=== PATIENT | female | born 1990 | race Caucasian/White ===

== ENCOUNTER 2017-06-07 18:00 | Emergency (ER) | payer OTHER ==
[~2017-06-07] VITALS: Ht 160 cm; Wt 109.3 kg
[2017-06-07 18:40] VITALS: Ht 160 cm; Wt 109.3 kg
[2017-06-07 23:40] VITALS: BP 137/75
== END 2017-06-07 23:40 | disposition home or self-care (01) ==
LOC: ED 18:00
DX: S39.012A Strain of muscle, fascia and tendon of lower back, initial encounter (principal); X58.XXXA Exposure to other specified factors, initial encounter; Y93.89 Activity, other specified; Y99.8 Other external cause status; Y92.89 Other specified places as the place of occurrence of the external cause

== ENCOUNTER 2019-05-17 20:33 | Emergency (ER) | payer OTHER ==
[~2019-05-17] VITALS: Ht 160 cm; Wt 117.5 kg
[2019-05-17 21:24] VITALS: Ht 160 cm; Wt 117.5 kg
[2019-05-18 00:02] VITALS: BP 134/67
== END 2019-05-18 00:02 | disposition home or self-care (01) ==
LOC: ED 20:33
DX: G44.209 Tension-type headache, unspecified, not intractable (principal)
CPT/HCPCS: 82962; J8597